=== PATIENT | female | born 1970 | race Caucasian/White ===

== ENCOUNTER → 2019-06-19 | Outpatient (CLI) | payer BC ==
[~2019-06-19] MED LIST: ALPR1TAB2 PO; ANTIDEPRESSANT PO; BUPIVACAINE MPF 0.25% 10 ML VIAL. ONE; CELE100C PO; DEXAMETHASONE SOD PHOS 10 MG/ML VIAL ONE; DULO60CA6 PO; PREG150C PO
[2019-06-19 09:30] VITALS: BP 127/90
== END | disposition home or self-care (01) ==
LOC: SURG 09:18
PROVIDERS: ATTEND Anesthesiology
DX: M25.571 Pain in right ankle and joints of right foot (principal); J44.9 Chronic obstructive pulmonary disease, unspecified; Z98.890 Other specified postprocedural states; Z79.899 Other long term (current) drug therapy; Z88.2 Allergy status to sulfonamides; Z88.8 Allergy status to other drugs, medicaments and biological substances
CPT/HCPCS: 64450; J1100; J3490